=== PATIENT | male | born 1970 | race Caucasian/White ===

== ENCOUNTER 2016-12-29 14:02 | Emergency (ER) | payer OTHER ==
[~2016-12-29 14:02] MED LIST: ALBUTEROL17 GM INH; ASPIRIN81 M1; BACTRIM DS TABL1 TA1 PO; FLEXERIL10 MG PO; KEFLEX500 MG PO; NAPROXEN250 MG PO; NO MEDICATIONS; PAIN RELIEF500 M2 PO; VICODIN 5/1 TAB 5/50 PO; ZITHROMAX1 G/PKT PO
[2016-12-29] MEDS ORDERED: NO MEDICATIONS (14:26)
== END 2016-12-29 14:50 | disposition home or self-care (01) ==
LOC: SED 14:02
DX: J20.9 Acute bronchitis, unspecified (principal); J18.9 Pneumonia, unspecified organism; F17.200 Nicotine dependence, unspecified, uncomplicated; Z88.0 Allergy status to penicillin
CPT/HCPCS: 99282